=== PATIENT | female | born 1985 | race African-American/Black ===

== ENCOUNTER 2018-11-06 00:57 | Observation (INO) | payer OTHER, MEDICAID ==
[~2018-11-06] VITALS: Ht 157.5 cm; Wt 68.9 kg
[2018-11-06] MEDS ORDERED: TERBUTALINE SULFATE 1MG/ML VIAL SUBCUT NR (02:00)
[2018-11-06 03:47] LABS: CLARITY URINE CLEAR (CLEAR); COLOR URINE YELLOW (YELLOW); KETONES URINE NEGATIVE (NEGATIVE); LEUKOCYTE ESTERASE URINE NEGATIVE (NEGATIVE); NITRITE URINE NEGATIVE (NEGATIVE); OCCULT BLOOD URINE 2+ (NEGATIVE); PROTEIN URINE NEGATIVE (NEGATIVE); SPECIFIC GRAVITY URINE 1.005 (1.005-1.030); UROBILINOGEN URINE 0.2 E.U./dL (0.2-1.0)
== END 2018-11-06 04:30 | disposition home or self-care (01) ==
LOC: 8 EST LDRP 00:57
PROVIDERS: ADMIT Obstetrics & Gynecology; ATTEND Obstetrics & Gynecology
DX: O26.853 Spotting complicating pregnancy, third trimester (principal); Z3A.37 37 weeks gestation of pregnancy
CPT/HCPCS: 76805; 81003; 99281; G0378; J3105

== ENCOUNTER 2020-03-08 11:12 | Emergency (ER) | payer OTHER, MEDICAID ==
[~2020-03-08] VITALS: Ht 157.5 cm; Wt 53.5 kg
[2020-03-08] MEDS ORDERED: IBUPROFEN 400MG TABLET PO ONE (13:00)
[2020-03-08 13:30] VITALS: BP 105/75
== END 2020-03-08 13:30 | disposition home or self-care (01) ==
LOC: ER 11:12
DX: S00.83XA Contusion of other part of head, initial encounter (principal); V43.52XA Car driver injured in collision with other type car in traffic accident, initial encounter; Y93.89 Activity, other specified; Y92.488 Other paved roadways as the place of occurrence of the external cause
CPT/HCPCS: 70486; 99285